=== PATIENT | male | born 1975 ===

== ENCOUNTER 2020-07-01 06:00 | Day surgery (SDC) | payer OTHER ==
[~2020-07-01 06:00] MED LIST: ARMOUR PO
== END 2020-07-01 15:25 | disposition home or self-care (01) ==
LOC: CIR.AMB 06:00
PROVIDERS: ATTEND Orthopaedic Surgery Hand Surgery
DX: S61.224A Laceration with foreign body of right ring finger without damage to nail, initial encounter (principal); Z20.828 Contact with and (suspected) exposure to other viral communicable diseases